=== PATIENT | female | born 1980 | race Caucasian/White ===

== ENCOUNTER 2022-06-29 04:09 | Day surgery (SDC) | payer OTHER ==
[2022-06-23 09:58] VITALS: BMI 22.6
[~2022-06-29 04:09] MED LIST: BUPIVACAINE HCL/PF 0.5% (5MG/ML) 10 ML VIAL IJ ONE
[2022-06-29] MEDS ORDERED: PROPOFOL 20 ML ONE (07:24)
[2022-06-29] MEDS ORDERED: ROCURONIUM BROMIDE 50 MG/5 ML SYRINGE ONE (07:24)
[2022-06-29] MEDS ORDERED: MIDAZOLAM HCL 2 MG/2 ML SINGLE DOSE VIAL ONE (07:25)
[2022-06-29] MEDS ORDERED: ALBUTEROL SO4 HFA INHALER IH ONE (08:11)
[2022-06-29] MEDS ORDERED: DEXAMETHASONE SOD PHOSPHATE 4 MG/1 ML VIAL ONE (08:11)
[2022-06-29] MEDS ORDERED: BUPIVACAINE HCL/PF 0.5% (5MG/ML) 10 ML VIAL IJ ONE ×2 (08:29)
[2022-06-29] MEDS ORDERED: ONDANSETRON 4 MG/2 ML VIAL ONE (08:34)
[2022-06-29] MEDS ORDERED: TRIAMCINOLONE ACET 40MG/1ML VIAL ONE (08:36)
[2022-06-29] MEDS ORDERED: NEOSTIGMINE METHYLSULFATE 0.5 MG/ML - 10 ML MDV ONE (08:39)
[2022-06-29] MEDS ORDERED: GLYCOPYRROLATE 0.2 MG/1 ML VIAL ONE (08:44)
[2022-06-29] MEDS ORDERED: KETOROLAC TROMETHAMINE 30 MG/1 ML VIAL ONE (08:44)
[2022-06-29] MEDS ORDERED: TRIAMCINOLONE ACET 40MG/1ML VIAL IM ONE ×2 (08:50)
[2022-06-29] MEDS ORDERED: oxyCODONE HCL 5 MG TABLET PO PRN (09:02)
[2022-06-29] MEDS ORDERED: ONDANSETRON 4 MG/2 ML VIAL IVPUSH PRN (09:02)
[2022-06-29] MEDS ORDERED: ALBUTEROL SO4 0.083% IH SOL 2.5 MG/3 ML VIAL.NEB. NEB ONE ×2 (09:05→09:11)
[2022-06-29] MEDS ORDERED: LACTATED RINGERS SOLUTION 1,000 ML IV SCH (09:15)
[2022-06-29 11:09] VITALS: RESP 18
[2022-06-29 12:07] VITALS: BP 105/64; PULSE 78; TEMP 98.2
== END 2022-06-29 12:35 | disposition home or self-care (01) ==
LOC: JASU-SURG 04:09
PROVIDERS: ATTEND Obstetrics & Gynecology
PROC: 0UT74ZZ Resection of Bilateral Fallopian Tubes, Percutaneous Endoscopic Approach (ICD-10-PCS; principal; 2022-06-29 07:30)
DX: Z30.2 Encounter for sterilization (principal)
CPT/HCPCS: 88302-TC; 94760